=== PATIENT | female | born 1970 | race Two or more races ===

== ENCOUNTER 2017-02-09 05:00 | Day surgery (SDC) | payer OTHER ==
[2017-02-08 10:42] VITALS: BMI 54.3
--- NOTE | 2017-02-09 07:58 | HP ---
History & Physical Update - History History: No Change - Physical Physical: No Change - Assessment Assessment: No Change - Plan Plan: No Change (Consent signed and witnessed)
[2017-02-09] MEDS ORDERED: MIDAZOLAM HCL 2 MG/2 ML SINGLE DOSE VIAL ONE (08:03)
[2017-02-09] MEDS ORDERED: LIDOCAINE HCL/PF 2% SDV 5ML VIAL ONE (08:03)
[2017-02-09] MEDS ORDERED: PROPOFOL 20 ML ONE ×2 (08:03)
[2017-02-09] MEDS ORDERED: IBUPROFEN 800 MG/8 ML IJ IVPB ONE (08:16)
[2017-02-09] MEDS ORDERED: DEXAMETHASONE SOD PHOSPHATE 4 MG/1 ML VIAL ONE (08:34)
[2017-02-09] MEDS ORDERED: ePHEDrine SULFATE 50 MG/1 ML AMPULE ONE (08:46)
[2017-02-09] MEDS ORDERED: ONDANSETRON 4 MG/2 ML VIAL IVPUSH PRN (09:26)
[2017-02-09] MEDS ORDERED: ACETAMINOPHEN 1000 MG/100 ML VIAL (NON FORMULARY) IVPB ONE (09:26)
[2017-02-09] MEDS ORDERED: LACTATED RINGERS SOLUTION 1,000 ML IV SCH (09:30)
[2017-02-09 10:49] VITALS: TEMP 98
--- NOTE | 2017-02-09 10:52 | OP ---
Operative Note - Note: Operative Date: 02/09/17 Pre-Operative Diagnosis: 46 yo post Endometrial ablation, morbid obesity, menometrorrhagia Operation: Hysteroscopy, Lysis of adhesions, Multiple polypectomy, D&C Findings: 1. Adhesions 2. Polyps - Endometrial and cervical Post-Operative Diagnosis: Same as Pre-op Surgeon: Dalila Richards Anesthesiologist/SURFACE PLATE FINISHER: Rosamaria Harris Anesthesia: MAC Estimated Blood Loss (mls): 0 Instrument used (Debridements only): TruClear Resectoscope Drains & Tubes with Location: Fluid deficit 50cc Drains, Volume Out (mls): 150 Fluid Volume Replaced (mls): 400 Operative Report Dictated: Yes
[2017-02-09] MEDS ORDERED: KETOROLAC TROMETHAMINE 60 MG/2 ML VIAL IVPUSH ONE ×2 (10:53→11:10)
[2017-02-09] MEDS ORDERED: KETOROLAC TROMETHAMINE 30 MG/1 ML VIAL ONE (10:53)
[2017-02-09 12:50] VITALS: BP 123/64; PULSE 72
--- NOTE | 2017-02-10 13:59 | PATH ---
Surgical Pathology Report Patient Name: REJI CARVALHO [facility]. Rec. #: [id number] /Age/Gender: 1970 (Age: 46) / F Account: [id number] Location: [facility] SURGICAL Taken: 02/09/2017 Received: 02/09/2017 Reported: 02/10/2017 Physicians: Dalila Richards M.D. Specimen(s) Received ENDOMETRIAL POLYPS, ENDOCERVICAL POLYPS, ENDOMETRIAL CURETTINGS Clinical History Abnormal uterine and vaginal bleeding Final Diagnosis ENDOMETRIAL CURETTINGS, ENDOMETRIAL POLYP, ENDOCERVICAL POLYP, DILATATION AND CURETTAGE: ENDOMETRIAL POLYP, FRAGMENTS OF FIBROUS STROMA AND DETACHED ENDOCERVICAL TISSUE CONSISTENT WITH ENDOCERVICAL POLYP, LOWER UTERINE SEGMENT, AND BENIGN EXOCERVICAL TISSUE. Electronically Signed Constance Charlton M.D. Gross Description Received in formalin labeled "endometrial polyps, endocervical polyps, endometrial curettings," is a 1.4 x 1.4 x 0.2 cm aggregate of castro red soft tissue fragments. The formalin is filtered and the specimen is entirely submitted in one cassette. /02/09/201702/09/2017
--- NOTE | 2017-02-10 14:21 | OP ---
DATE OF OPERATION: 02/09/2017 PREOPERATIVE DIAGNOSIS: A 46-year-old post endometrial ablation, morbid obesity, menometrorrhagia. POSTOPERATIVE DIAGNOSES: 1. A 46-year-old post endometrial ablation, morbid obesity, menometrorrhagia. 2. Endometrial and endocervical polyps. PROCEDURE PERFORMED: Hysteroscopy, lysis of adhesions, multiple polypectomies, dilatation and curettage. SURGEON: Dalila Richards MD ANESTHESIOLOGIST: Rosamaria Harris MD ANESTHESIA: MAC. FINDINGS: Adhesions to polyps, endometrial and endocervical. DESCRIPTION OF PROCEDURE: After ensuring informed consent, the patient was brought to the operating room, where she was placed in the dorsal lithotomy position. The perineum was prepped and draped in sterile fashion. A 5-mm TruClear hysteroscope was set up, primed, white balanced, and readied for the procedure. Vaginal retractors were placed. The cervix was visualized, and a single-tooth tenaculum was placed on the anterior lip. The cervix was gradually dilated with Mcallister dilators. The hysteroscope was inserted in the uterus, and adhesions were encountered as well as several polyps inside the cavity. The TruClear resectoscope was introduced through the operative port. It was window-locked. Multiple polyps and adhesions were resected with the resectoscope instrument, mechanically. Subsequently, once the polyps were resected, curettage was also performed by using the TruClear instrument, to avoid the use of curettes, since the uterus was sharply anteverted and difficult to negotiate. Subsequently, the endometrial cavity was found to be clear of polyps and overgrown lining. As the resectoscope was removed slowly, an endocervical polyp was encountered as well and also resected in the unusually long cervical canal. Subsequently the resectoscope was removed. The tenaculum was removed from the vagina as well as the retractor. Excellent hemostasis was noted. The fluid deficit was found to be 50 mL throughout the procedure. The patient had 150 mL of urine drained prior to the procedure, and received 400 mL of IV fluids. All instrument and sponge counts were correct x2. The patient tolerated the procedure well and was brought to the recovery room in stable condition. All specimens were sent to Pathology. Robert [id number]
== END 2017-02-09 13:30 | disposition home or self-care (01) ==
LOC: JASU-SURG 05:00
PROVIDERS: ATTEND Obstetrics & Gynecology
PROC: 0UB98ZX Excision of Uterus, Via Natural or Artificial Opening Endoscopic, Diagnostic (ICD-10-PCS; 2017-02-09)
PROC: 0UDB8ZX Extraction of Endometrium, Via Natural or Artificial Opening Endoscopic, Diagnostic (ICD-10-PCS; 2017-02-09)
PROC: 0UN98ZZ Release Uterus, Via Natural or Artificial Opening Endoscopic (ICD-10-PCS; 2017-02-09)
PROC: 0UBC8ZX Excision of Cervix, Via Natural or Artificial Opening Endoscopic, Diagnostic (ICD-10-PCS; principal; 2017-02-09 08:00)
DX: N92.1 Excessive and frequent menstruation with irregular cycle (principal); N85.6 Intrauterine synechiae; N84.0 Polyp of corpus uteri; N84.1 Polyp of cervix uteri; E66.01 Morbid (severe) obesity due to excess calories
CPT/HCPCS: 84703; 88305-TC; 94760